=== PATIENT | female | born 1930 | race Caucasian/White ===

== ENCOUNTER 2016-09-21 23:00 | Inpatient (IN) | payer MEDICARE, OTHER ==
--- NOTE | ~2016-09-21 | HP ---
History And Physical [facility] [address] [place]. [address] NAME: ROLANDO PALMA : 32 STATUS : ADM Maynor PAT#: [id number] AGE: 86 ADM/REG DATE : 09/21/16 MR#: [id number] REPORT SERV DATE: 09/22/16 DICTATED BY: FRANKLIN BAKER DATE: 09/22/16 REPORT STATUS : Draft TRANSCRIBED BY: MODL DATE: 09/22/16 DATE OF ADMISSION: 09/21/2016 CHIEF COMPLAINT: Ulcers in both her lower extremities with redness and pain. HISTORY OF PRESENT ILLNESS: This is an 86-year-old female with a history of atrial fibrillation on warfarin therapy, COPD, and essential hypertension, who presents to the emergency room at [facility] with the above-mentioned complaint. History is obtained from the patient, her daughter, and granddaughter, who are at bedside, and reviewing data available on the [employer] system as well. According to Ms. Palma and family, it all started about two to two and a half weeks ago with two small blisters on either leg, which burst and blossomed into where it is now. She was taken to see her primary care physician, Dr. Kenan Mcdonald in [place], who treated her with oral antibiotics. This did not get her well, so she went to [facility], where she was seen and again treated with no benefit. Her legs continued to get worse, redness spread to involve more of her legs, the ulcers grew bigger in size, and pain was unbearable. The patient was brought to the emergency room here to be evaluated. In the emergency room, indeed, she had bilateral leg cellulitis with ulcers. Hospitalist Service is asked to admit her for further evaluation and treatment. At the time of my evaluation, she denied any chest pain, palpitations, or orthopnea. She had no cough, hemoptysis, night sweats, or weight loss. She has not had any fevers, chills, night sweats. She has not had any other trauma to her lower extremities. She does not know or recollect how these blisters came about. No other history of recent travel or exposures. PAST MEDICAL HISTORY: Significant for essential hypertension; atrial fibrillation, on warfarin; congestive heart failure; and COPD. SOCIAL HISTORY: She has never smoked. Does not drink or use recreational drugs. 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 FAMILY HISTORY: Noncontributory. MEDICATIONS: Her medications at home were reviewed by me in the chart today and reordered by me. REVIEW OF SYSTEMS: As in history of present illness. All other systems were reviewed in detail and are quite unremarkable. PHYSICAL EXAMINATION: GENERAL: This is a pleasant 86-year-old, not in any acute distress. HEENT: Her head is atraumatic, normocephalic. She is alert, awake, oriented to time, place, and person. Pupils are equal, reacting to light and accommodating. External ocular muscles History And Physical [address] [address] NAME: ROLANDO PALMA : 32 STATUS : ADM Maynor PAT#: [id number] AGE: 86 ADM/REG DATE : 09/21/16 MR#: [id number] REPORT SERV DATE: 09/22/16 DICTATED BY: FRANKLIN BAKER DATE: 09/22/16 REPORT STATUS : Draft TRANSCRIBED BY: GERSON DATE: 09/22/16 are intact. Membranes are moist and pink. Sclerae are nonicteric. NECK: Supple with no jugular venous distention, lymphadenopathy, or thyromegaly. LUNGS: Clear to auscultation with no wheezes, rubs, or crackles. HEART: Heart sounds were regular with no murmurs, rubs, or gallops. ABDOMEN: Soft, nontender. Bowel sounds are present. EXTREMITIES: Showed bilateral ulcers measuring 2.5 to 3 cm with redness and pain to palpation and touch. NEURO: Grossly intact. No focal deficits. She was able to move all four extremities. VITAL SIGNS: Today showed a temperature of 98.3, pulse 77, respirations 20 a minute, blood pressure was 153/62, oxygen saturations were 91% on room air. LABORATORY DATA: Reviewed on the [employer] system showed a normal CMP with a blood glucose of 102. Lactate was 1.5 today. CBC showed a white blood cell count of 7300, hemoglobin was 12.4, hematocrit 40.2, and platelet count was 211. Her prothrombin time and INR were not done today. No other imaging was done. A 12-lead EKG was not done in the ER. IMPRESSION: 1. Bilateral lower extremity cellulitis and ulcers. 2. Essential hypertension. 3. Congestive heart failure. 4. Atrial fibrillation, on warfarin. 5. Chronic obstructive pulmonary disease. PLAN: We will admit Ms. Palma to the Hospitalist Service with defensive monitoring for a 24- hour observation period. After cultures are drawn, we will start her on empiric IV antibiotics and get Wound Care to evaluate her in the morning. We will also provide pain control with Lortab orally along with morphine if she should need it. We will continue to monitor blood pressures and other things. We will also get a stat PT/INR and then decide on continuing her warfarin. I have discussed the above plans with the patient and the family. Questions were answered and they are agreeable to the above recommendations. Hospitalist Service will be following her during her stay here. /GERSON Franklin Baker M.D. / [id number] CC: MD Kenan Zamudio II, MD
--- NOTE | ~2016-09-21 | DS ---
Discharge Summary [facility] [address] [place]. [address] NAME: ROLANDO JONES : 32 STATUS : DIS IN PAT#: [id number] AGE: 86 ADM/REG DATE : 09/21/16 MR#: [id number] REPORT SERV DATE: 09/27/16 DICTATED BY: EMERSON TO II DATE: 09/26/16 REPORT STATUS : Draft TRANSCRIBED BY: MODL DATE: 09/26/16 ADMISSION DATE: 09/21/2016 DISCHARGE DATE: 09/26/2016 DISCHARGE DIAGNOSES: 1. Bilateral lower extremity ulcers with questionable cellulitis versus chronic stasis dermatitis. 2. Chronic lymph edema. 3. Acute on chronic congestive heart failure of unknown type. 4. Acute hypoxic respiratory failure. 5. Atrial fibrillation, on Coumadin. 6. Peripheral vascular disease with history of left stent. CONSULTS: Dr. Anderson of Vascular Surgery and Dr. German with Wound Care Surgery. BRIEF HISTORY OF PRESENT ILLNESS: The patient is an 86-year-old female with the above history who presented to [facility] due to worsening ulcers and pain in her bilateral lower extremities. For detailed history and physical examination, please see Dr. Franklin Lara's note from 09/21/2016. HOSPITAL COURSE: On admission, the patient was placed on IV vanc as she had previously been on Augmentin and clindamycin with no affect on her nonhealing ulcers. Her white count was only 7.3, she was afebrile and no evidence of sepsis. Her bilateral lower extremity ulcers now measuring around 4 cm in diameter a piece appear to have a granulated base and surrounding chronic stasis dermatitis as opposed to evidence of true cellulitis. Given the patient's history of peripheral vascular disease, Dr. German was consulted for consideration of possible hyperbarics and possible further vascular workup. He agreed the lesions appeared to be more vascular ulcers in nature and did not look infectious. She has had a stent in the left lower extremity previously due to peripheral artery disease. However, recent ABIs from June showed good flow and ABIs of 0.[address] German consulted Dr. Anderson with Vascular Surgery for consideration of possible further vascular workup, however, Dr. Anderson' evaluation showed good pulses in the popliteals and she has good dopplerable pulses peripherally as well and good cap refill. So he was of the opinion that her ulcers should heal with time. Wound Care was involved and the ulcers appear to be improving with wound care and some of the superficial slough is revealing a well granulated base. Dr. Anderson will see the patient in 6 weeks and will have the patient follow up in Dr. German's [facility] as well as provide home health with wound care at home. Also of note, the patient was found to be hypoxic and chest x-ray revealed a right basilar infiltrate. The patient had no fever, normal white count, procalcitonin was normal and more concern for volume overload given her fairly high JVD and BNP of 882. She was given IV diuretics and continued on her home dose of Lasix which is 80 mg daily and 40 in the afternoon. She qualifies for home O2 and this has been arranged. The patient denies any significant symptoms of hypoxia, cough, or sputum production. Definitely no subjective fevers or objective fevers. She also had some weakness and PT thought that she would benefit from inpatient rehab, however, the family has 24-hour care and wishes to take the patient home and will be with her 28/11. Otherwise, she is currently stable for discharge Discharge Summary [place] [id number] [facility] [place]. [address] NAME: ROLANDO JONES : 32 STATUS : DIS IN PAT#: [id number] AGE: 86 ADM/REG DATE : 09/21/16 MR#: [id number] REPORT SERV DATE: 09/27/16 DICTATED BY: EMERSON TO II DATE: 09/26/16 REPORT STATUS : Draft TRANSCRIBED BY: GERSON DATE: 09/26/16 and will follow up as per above. DISCHARGE MEDICATIONS: 1. Ventralex ointment applied to bilateral lower extremity from feet to knees topically b.i.d. 2. Cardizem ER 120 mg p.o. daily. 3. Lasix 80 mg p.o. daily. 4. Lasix 40 mg p.o. at bedtime. 5. Protonix 40 mg p.o. daily. 6. Lyrica 100 mg p.o. b.i.d. 7. Diovan 320 mg p.o. daily. 8. Jantoven 2 mg p.o. Tuesdays at 1800 and 4 mg p.o. on Monday, Monday, , Monday, Monday, Monday q.p.m. 9. Symbicort 1 puff inhaled b.i.d. 10.Tylenol 325 mg p.o. daily p.r.n. 11.Albuterol neb q.4 hours p.r.n. 12.Brandon 5/325 mg p.o. q.6 hours p.r.n. pain. DISCHARGE INSTRUCTIONS: The patient will follow up with Dr. German in one to two weeks. Dr. Anderson in 6 weeks. DICTATED BY: Emerson To II, MD JEG/MODL Emerson To II, MD / [id number] CC: MD Kenan Zamudio II, MD
[2016-09-22 00:20] LABS: BASOPHILS 1.1 %; BASOPHILS ABSOLUTE 0.08 10/3/uL (0.0-0.16); EOSINOPHILS 2.9 %; EOSINOPHILS ABSOLUTE 0.21 10/3/uL (0.0-0.53); ER CBC TAT 0 Hrs 00 Mins; HEMATOCRIT 40.2 % (36.0-48.0); HEMOGLOBIN 12.4 g/dL (12.0-16.0); LYMPHOCYTES 17.9 %; MEAN CORPUS HGB CONC 30.8 g/dL (32.0-36.0); MEAN CORPUSCULAR HEMOGLOB 25.3 pg (26.0-34.0); MEAN PLATELET VOLUME 10.6 fL (9.2-13.0); MONOCYTES 13.2 %; MONOCYTES ABSOLUTE 0.96 10/3/uL (0.21-1.20); NEUTROPHILS 64.9 %; NEUTROPHILS ABSOLUTE 4.72 10/3/uL (2.02-8.40); PLATELET COUNT 211 10/3/uL (150-400); RBC DISTRIBUTION WIDTH 16.3 % (12.0-16.0); WHITE BLOOD CELLS 7.3 10/3/uL (4.5-10.5)
[2016-09-22 00:24] LABS: MANUAL DIFF NO %
[2016-09-22 00:31] LABS: BUN (BLOOD UREA NITROGEN) 22 MG/DL (6-23); CALCIUM, SERUM 8.8 MG/DL (8.5-10.4); CHLORIDE, SERUM 102 MMOL/L (96-112); CO2 (CARBON DIOXIDE) 36 MMOL/L (24-34); CREATININE 0.95 MG/DL (0.55-1.02); GFR AFRICAN AMERICAN 63 ML/MIN (>=60); GFR NON AFRICAN AMERICAN 55 ML/MIN (>=60); GLUCOSE, SERUM 102 MG/DL (60-99); POTASSIUM, SERUM 3.9 MMOL/L (3.5-5.3); SODIUM, SERUM 141 MMOL/L (135-148)
[2016-09-22 00:45] LABS: LACTATE 1.5 MMOL/L (0.3-2.4)
[2016-09-22] MEDS ORDERED: L80 PO (02:08)
[2016-09-22] MEDS ORDERED: L40 PO (02:09)
[2016-09-22] MEDS ORDERED: CARTIA XT120 MG/24 PO (02:09)
[2016-09-22] MEDS ORDERED: LYRICA100 MG PO (02:14)
[2016-09-22] MEDS ORDERED: PROTONIX PO (02:14)
[2016-09-22] MEDS ORDERED: CLINDA150 PO (02:16)
[2016-09-22] MEDS ORDERED: DIOVAN320 MG PO (02:16)
[2016-09-22] MEDS ORDERED: JANTOVEN2 MG PO (02:16)
[2016-09-22] MEDS ORDERED: T PO (02:17)
[2016-09-22] MEDS ORDERED: JANTOVEN4 MG PO (02:17)
[2016-09-22] MEDS ORDERED: SYMBICORT 160/41 INH INH (02:19)
[2016-09-22] MEDS ORDERED: ALBUTEROL0.083 % INH (02:20)
[2016-09-22 03:47] LABS: INTERNATIONAL NORMAL RATI 2.8 UNITS (-); PROTIME (NOT ORD) 29.1 SEC (12.0-14.5)
[2016-09-22 06:58] LABS: BASOPHILS 1.1 %; BASOPHILS ABSOLUTE 0.08 10/3/uL (0.0-0.16); EOSINOPHILS ABSOLUTE 0.21 10/3/uL (0.0-0.53); HEMATOCRIT 36.3 % (36.0-48.0); HEMOGLOBIN 11.2 g/dL (12.0-16.0); IMMATURE GRANULOCYTES 0.3 %; IMMATURE GRANULOCYTES ABSOLUTE 0.02 10/3/uL (0.0-0.11); LYMPHOCYTES 17.3 %; LYMPHOCYTES ABSOLUTE 1.23 10/3/uL (0.67-4.30); MEAN CORPUS HGB CONC 30.9 g/dL (32.0-36.0); MEAN CORPUSCULAR HEMOGLOB 25.2 pg (26.0-34.0); MEAN CORPUSCULAR VOLUME 81.8 fL (80-100); MEAN PLATELET VOLUME 9.9 fL (9.2-13.0); MONOCYTES ABSOLUTE 0.85 10/3/uL (0.21-1.20); NEUTROPHILS 66.3 %; NEUTROPHILS ABSOLUTE 4.72 10/3/uL (2.02-8.40); PLATELET COUNT 193 10/3/uL (150-400); RBC DISTRIBUTION WIDTH 16.3 % (12.0-16.0); RED CELL COUNT 4.44 10/6/uL (4.0-5.6); WHITE BLOOD CELLS 7.1 10/3/uL (4.5-10.5)
[2016-09-22 07:05] LABS: MANUAL DIFF NO %
[2016-09-22 07:11] LABS: BUN (BLOOD UREA NITROGEN) 20 MG/DL (6-23); CALCIUM, SERUM 8.7 MG/DL (8.5-10.4); CHLORIDE, SERUM 104 MMOL/L (96-112); CO2 (CARBON DIOXIDE) 32 MMOL/L (24-34); CREATININE 0.87 MG/DL (0.55-1.02); GFR AFRICAN AMERICAN 70 ML/MIN (>=60); GFR NON AFRICAN AMERICAN 61 ML/MIN (>=60); PHOSPHORUS, SERUM 3.3 MG/DL (2.5-4.5); POTASSIUM, SERUM 3.7 MMOL/L (3.5-5.3); SODIUM, SERUM 141 MMOL/L (135-148)
[2016-09-22 07:12] LABS: GLUCOSE, SERUM 125 MG/DL (60-99)
[2016-09-23 05:27] LABS: INTERNATIONAL NORMAL RATI 3.3 UNITS (-)
[2016-09-23 05:35] LABS: PROTIME (NOT ORD) 33.6 SEC (12.0-14.5)
[2016-09-23 09:25] LABS: BASOPHILS 0.7 %; BASOPHILS ABSOLUTE 0.05 10/3/uL (0.0-0.16); EOSINOPHILS 2.5 %; EOSINOPHILS ABSOLUTE 0.18 10/3/uL (0.0-0.53); HEMATOCRIT 37.3 % (36.0-48.0); HEMOGLOBIN 11.4 g/dL (12.0-16.0); IMMATURE GRANULOCYTES 0.3 %; IMMATURE GRANULOCYTES ABSOLUTE 0.02 10/3/uL (0.0-0.11); LYMPHOCYTES 13.8 %; LYMPHOCYTES ABSOLUTE 0.99 10/3/uL (0.67-4.30); MANUAL DIFF NO %; MEAN CORPUS HGB CONC 30.6 g/dL (32.0-36.0); MEAN CORPUSCULAR HEMOGLOB 25.7 pg (26.0-34.0); MEAN PLATELET VOLUME 9.8 fL (9.2-13.0); MONOCYTES 10.3 %; MONOCYTES ABSOLUTE 0.74 10/3/uL (0.21-1.20); NEUTROPHILS 72.4 %; NEUTROPHILS ABSOLUTE 5.21 10/3/uL (2.02-8.40); PLATELET COUNT 182 10/3/uL (150-400); RBC DISTRIBUTION WIDTH 16.6 % (12.0-16.0); RED CELL COUNT 4.44 10/6/uL (4.0-5.6); WHITE BLOOD CELLS 7.2 10/3/uL (4.5-10.5)
[2016-09-23 09:36] LABS: BUN (BLOOD UREA NITROGEN) 24 MG/DL (6-23); CHLORIDE, SERUM 106 MMOL/L (96-112); CO2 (CARBON DIOXIDE) 35 MMOL/L (24-34); CREATININE 0.98 MG/DL (0.55-1.02); GFR AFRICAN AMERICAN 61 ML/MIN (>=60); GFR NON AFRICAN AMERICAN 53 ML/MIN (>=60); GLUCOSE, SERUM 110 MG/DL (60-99); POTASSIUM, SERUM 4.9 MMOL/L (3.5-5.3); SODIUM, SERUM 142 MMOL/L (135-148)
[2016-09-24 05:23] LABS: BASOPHILS 1.1 %; BASOPHILS ABSOLUTE 0.07 10/3/uL (0.0-0.16); EOSINOPHILS 4.2 %; EOSINOPHILS ABSOLUTE 0.27 10/3/uL (0.0-0.53); HEMATOCRIT 35.5 % (36.0-48.0); HEMOGLOBIN 10.8 g/dL (12.0-16.0); IMMATURE GRANULOCYTES 0.2 %; IMMATURE GRANULOCYTES ABSOLUTE 0.01 10/3/uL (0.0-0.11); LYMPHOCYTES 15.2 %; LYMPHOCYTES ABSOLUTE 0.99 10/3/uL (0.67-4.30); MEAN CORPUS HGB CONC 30.4 g/dL (32.0-36.0); MEAN CORPUSCULAR HEMOGLOB 25.2 pg (26.0-34.0); MEAN CORPUSCULAR VOLUME 82.9 fL (80-100); MEAN PLATELET VOLUME 9.8 fL (9.2-13.0); MONOCYTES 11.2 %; MONOCYTES ABSOLUTE 0.73 10/3/uL (0.21-1.20); NEUTROPHILS 68.1 %; NEUTROPHILS ABSOLUTE 4.43 10/3/uL (2.02-8.40); PLATELET COUNT 191 10/3/uL (150-400); RBC DISTRIBUTION WIDTH 16.7 % (12.0-16.0); RED CELL COUNT 4.28 10/6/uL (4.0-5.6); WHITE BLOOD CELLS 6.5 10/3/uL (4.5-10.5)
[2016-09-24 05:25] LABS: MANUAL DIFF NO %
[2016-09-24 05:30] LABS: PROTIME (NOT ORD) 30.6 SEC (12.0-14.5)
[2016-09-24 05:39] LABS: CALCIUM, SERUM 8.7 MG/DL (8.5-10.4); CHLORIDE, SERUM 102 MMOL/L (96-112); CO2 (CARBON DIOXIDE) 35 MMOL/L (24-34); CREATININE 1.27 MG/DL (0.55-1.02); GFR AFRICAN AMERICAN 45 ML/MIN (>=60); GFR NON AFRICAN AMERICAN 38 ML/MIN (>=60); GLUCOSE, SERUM 103 MG/DL (60-99); POTASSIUM, SERUM 4.2 MMOL/L (3.5-5.3); SODIUM, SERUM 140 MMOL/L (135-148)
[2016-09-24 05:40] LABS: BUN (BLOOD UREA NITROGEN) 34 MG/DL (6-23)
[2016-09-25 06:22] LABS: PROTIME (NOT ORD) 22.7 SEC (12.0-14.5)
[2016-09-25 06:23] LABS: BASOPHILS 0.9 %; BASOPHILS ABSOLUTE 0.06 10/3/uL (0.0-0.16); EOSINOPHILS 3.5 %; EOSINOPHILS ABSOLUTE 0.24 10/3/uL (0.0-0.53); HEMATOCRIT 34.6 % (36.0-48.0); HEMOGLOBIN 10.8 g/dL (12.0-16.0); IMMATURE GRANULOCYTES 0.3 %; IMMATURE GRANULOCYTES ABSOLUTE 0.02 10/3/uL (0.0-0.11); LYMPHOCYTES 15.6 %; LYMPHOCYTES ABSOLUTE 1.07 10/3/uL (0.67-4.30); MEAN CORPUS HGB CONC 31.2 g/dL (32.0-36.0); MEAN CORPUSCULAR HEMOGLOB 25.7 pg (26.0-34.0); MEAN CORPUSCULAR VOLUME 82.4 fL (80-100); MEAN PLATELET VOLUME 10.2 fL (9.2-13.0); MONOCYTES 10.2 %; NEUTROPHILS 69.5 %; NEUTROPHILS ABSOLUTE 4.76 10/3/uL (2.02-8.40); PLATELET COUNT 199 10/3/uL (150-400); RBC DISTRIBUTION WIDTH 16.7 % (12.0-16.0); WHITE BLOOD CELLS 6.9 10/3/uL (4.5-10.5)
[2016-09-25 06:25] LABS: MANUAL DIFF NO %
[2016-09-25 06:31] LABS: BUN (BLOOD UREA NITROGEN) 35 MG/DL (6-23); CALCIUM, SERUM 9.3 MG/DL (8.5-10.4); CHLORIDE, SERUM 102 MMOL/L (96-112); CO2 (CARBON DIOXIDE) 33 MMOL/L (24-34); CREATININE 1.03 MG/DL (0.55-1.02); GFR AFRICAN AMERICAN 57 ML/MIN (>=60); GFR NON AFRICAN AMERICAN 50 ML/MIN (>=60); GLUCOSE, SERUM 99 MG/DL (60-99); POTASSIUM, SERUM 4.4 MMOL/L (3.5-5.3); SODIUM, SERUM 143 MMOL/L (135-148)
[2016-09-25 12:10] LABS: PROCALCITONIN <0.05 ng/mL (<0.5)
[2016-09-26 09:26] LABS: INTERNATIONAL NORMAL RATI 1.5 UNITS (-); PROTIME (NOT ORD) 17.9 SEC (12.0-14.5)
[2016-09-26 09:59] LABS: BASOPHILS 0.5 %; BASOPHILS ABSOLUTE 0.03 10/3/uL (0.0-0.16); EOSINOPHILS 3.3 %; EOSINOPHILS ABSOLUTE 0.21 10/3/uL (0.0-0.53); HEMOGLOBIN 11.3 g/dL (12.0-16.0); IMMATURE GRANULOCYTES 0.2 %; IMMATURE GRANULOCYTES ABSOLUTE 0.01 10/3/uL (0.0-0.11); LYMPHOCYTES 13.3 %; LYMPHOCYTES ABSOLUTE 0.84 10/3/uL (0.67-4.30); MEAN CORPUS HGB CONC 30.5 g/dL (32.0-36.0); MEAN CORPUSCULAR HEMOGLOB 25.6 pg (26.0-34.0); MEAN CORPUSCULAR VOLUME 83.7 fL (80-100); MEAN PLATELET VOLUME 10.1 fL (9.2-13.0); MONOCYTES 9.4 %; MONOCYTES ABSOLUTE 0.59 10/3/uL (0.21-1.20); NEUTROPHILS 73.3 %; NEUTROPHILS ABSOLUTE 4.62 10/3/uL (2.02-8.40); PLATELET COUNT 196 10/3/uL (150-400); RBC DISTRIBUTION WIDTH 16.6 % (12.0-16.0); RED CELL COUNT 4.42 10/6/uL (4.0-5.6); WHITE BLOOD CELLS 6.3 10/3/uL (4.5-10.5)
[2016-09-26 10:00] LABS: MANUAL DIFF NO %
[2016-09-26 10:11] LABS: BUN (BLOOD UREA NITROGEN) 35 MG/DL (6-23); CHLORIDE, SERUM 102 MMOL/L (96-112); CREATININE 1.09 MG/DL (0.55-1.02); GFR AFRICAN AMERICAN 54 ML/MIN (>=60); GFR NON AFRICAN AMERICAN 46 ML/MIN (>=60); SODIUM, SERUM 143 MMOL/L (135-148)
[2016-09-26 10:12] LABS: CO2 (CARBON DIOXIDE) 39 MMOL/L (24-34); GLUCOSE, SERUM 143 MG/DL (60-99); POTASSIUM, SERUM 3.5 MMOL/L (3.5-5.3)
[2016-09-26] MEDS ORDERED: NORCO1 TA1 PO (13:54)
== END 2016-09-26 16:50 | disposition home health service (06) | DRG 602 ==
LOC: ER 23:00 → 4EA 23:59
PROVIDERS: Internal Medicine; Internal Medicine Pulmonary Disease; Specialist
DX: L03.115 Cellulitis of right lower limb (principal); J96.01 Acute respiratory failure with hypoxia; L03.116 Cellulitis of left lower limb; I50.9 Heart failure, unspecified; I48.2 Chronic atrial fibrillation; Z79.01 Long term (current) use of anticoagulants; J44.9 Chronic obstructive pulmonary disease, unspecified; I73.9 Peripheral vascular disease, unspecified
CPT/HCPCS: 71010; 80048; 80202; 83605; 83735; 83880; 84100; 84145; 85025; 85610; 85730; 87040; 94640; 96365; 97162-GP; 99284; A9270-GY; G8978-CK-GP; G8979-CK-GP; G8980-CK-GP; J3370